=== PATIENT | male | born 1980 | race American Indian/Alaskan Native ===

== ENCOUNTER 2020-05-27 02:27 | Emergency (ER) | payer MEDICAID ==
[2020-05-27 02:59] VITALS: BP 132/80
[2020-05-27] MEDS ORDERED: KETOROLAC 60 MG/2 ML INJ IM STA (05:00)
[2020-05-27] MEDS ORDERED: oxyCODONE /ACETAMINOPHEN 5-325MG TAB PO ONE (05:00)
--- NOTE | 2020-05-27 06:06 | XRay Report ---
Right knee-3 views INDICATION: pain and swelling injury. COMPARISON: None. IMPRESSION: ORIF change in the proximal tibia with partial bridging heterotopic ossification about t he knee itself. There is mild tricompartmental DJD and a small suprapatellar effusion. No acute fract ure. Normal alignment. Signer Name: Matthew Faulkner MD Signed: 05/27/2020 6:02 AM Workstation Name: [id number]
--- NOTE | 2020-05-27 06:07 | XRay Report ---
Right ankle-4 views INDICATION: pain and swelling injury. COMPARISON: None. IMPRESSION: Generalized soft tissue swelling about the ankle with no acute fracture or malalignment. Pes planus noted along with mild degenerative changes. Signer Name: Matthew Faulkner MD Signed: 05/27/2020 6:02 AM Workstation Name: [id number]
--- NOTE | 2020-05-27 06:29 | Emergency Department Report ---
ED Lower Extremity HPI - General Chief Complaint: Extremity Injury, Lower Stated Complaint: LEG PAIN Time Seen by Provider: 05/27/20 05:00 Source: patient Mode of arrival: Ambulatory Limitations: No Limitations - History of Present Illness Initial Comments: 39-year-old obese -[place] male was walking upstairs when he misstepped causing pain to his right knee and ankle followed by swelling has been progressive worsening since the onset a couple days ago. Reports having had knee surgery and leg surgery due to an injury in January of this month and thinks he may have had aggravated the site. He reports no fever, chills, sweats no numbness no tingling but the pain is dull and throbbing worse with palpation and range of motion and certain positions and with weightbearing MD Complaint: knee injury, ankle injury -: Sudden Severity: moderate, severe Improves With: nothing Worsens With: palpation Associated Symptoms: swelling, able to partially bear weight - Related Data Previous Rx's Medication Instructions Recorded Last Taken Type Ketorolac [Toradol] 10 mg PO Q6H PRN #14 tablet 05/27/20 Unknown Rx traMADoL [Ultram] 50 mg PO Q6HR PRN #20 tablet 05/27/20 Unknown Rx Allergies Allergy/AdvReac Type Severity Reaction Status Date / Time shrimp Allergy Mild Itching Verified 05/27/20 05:28 ED Review of Systems ROS: Stated complaint: LEG PAIN Other details as noted in HPI Comment: All other systems reviewed and negative ED Past Medical Hx - Past Medical History Previous Medical History?: Yes Hx Congestive Heart Failure: Yes Hx Arthritis: Yes (RA) Hx Asthma: Yes - Surgical History Past Surgical History?: Yes Additional Surgical History: LEG, Knee, right hand - Social History Smoking Status: Current Every Day Smoker Substance Use Type: Marijuana - Medications Home Medications: Home Medications Medication Instructions Recorded Confirmed Last Taken Type Ketorolac [Toradol] 10 mg PO Q6H PRN #14 tablet 05/27/20 Unknown Rx traMADoL [Ultram] 50 mg PO Q6HR PRN #20 tablet 05/27/20 Unknown Rx ED Physical Exam - General Limitations: No Limitations General appearance: alert, in no apparent distress - Head Head exam: Present: atraumatic, normocephalic - Eye Eye exam: Present: normal appearance, PERRL Pupils: Present: normal accommodation - ENT ENT exam: Present: normal exam, mucous membranes moist - Neck Neck exam: Present: normal inspection - Respiratory Respiratory exam: Present: normal lung sounds bilaterally. Absent: respiratory distress - Cardiovascular Cardiovascular Exam: Present: regular rate, normal rhythm. Absent: systolic murmur, diastolic murmur, rubs, gallop - GI/Abdominal GI/Abdominal exam: Present: soft, normal bowel sounds - Rectal Rectal exam: Present: deferred - Extremities Exam Extremities exam: Present: normal inspection, full ROM, normal capillary refill, joint swelling - Expanded Lower Extremity Exam Right Hip exam: Present: normal inspection Upper Leg exam: Present: normal inspection Knee exam: Present: tenderness, swelling, ecchymosis, pain w/ pronation/supination, pain/laxity with valgus, pain/laxity with varus Lower Leg exam: Present: normal inspection Ankle exam: Present: tenderness, swelling, ecchymosis. Absent: full ROM Foot/Toe exam: Present: normal inspection - Back Exam Back exam: Present: normal inspection - Neurological Exam Neurological exam: Present: alert, oriented X3 - Psychiatric Psychiatric exam: Present: normal affect, normal mood - Skin Skin exam: Present: warm, dry, intact, normal color. Absent: rash ED Course Vital Signs 05/27/20 02:57 Temperature 97.9 F Pulse Rate 82 Respiratory 20 Rate Blood Pressure 132/80 [Right] O2 Sat by Pulse 98 Oximetry Critical care attestation.: If time is entered above; I have spent that time in minutes in the direct care of this critically ill patient, excluding procedure time. ED Disposition Clinical Impression: Knee internal derangement Disposition: DC-01 TO HOME OR SELFCARE Is pt being admited?: No Does the pt Need Aspirin: No Condition: Stable Instructions: Meniscus Tear, Acute Knee Pain, Adult, How to Use a Knee Immobilizer, Knee Effusion, How to Use a Knee Immobilizer, [id number], Knee Sprain, Pediatric Prescriptions: Ketorolac [Toradol] 10 mg PO Q6H PRN #14 tablet PRN Reason: Pain traMADoL [Ultram] 50 mg PO Q6HR PRN #20 tablet PRN Reason: Pain Referrals: KYARA HUFF MD [Primary Care Provider] - 3-5 Days
== END 2020-05-27 07:15 | disposition home or self-care (01) ==
LOC: ED 02:27
DX: M23.91 Unspecified internal derangement of right knee (principal); I50.9 Heart failure, unspecified; M19.90 Unspecified osteoarthritis, unspecified site; J45.909 Unspecified asthma, uncomplicated; F17.200 Nicotine dependence, unspecified, uncomplicated; F12.10 Cannabis abuse, uncomplicated; Z79.899 Other long term (current) drug therapy; Z91.013 Allergy to seafood
CPT/HCPCS: 73562; 73610; 96372; 99283; J1885

== ENCOUNTER 2021-01-21 03:57 | Emergency (ER) | payer MEDICAID ==
[2021-01-21 04:10] VITALS: BP 114/64
[2021-01-21] MEDS ORDERED: ASPIRIN 325 MG TAB PO ONE (04:10)
[2021-01-21 04:31] LABS: Basophils # (Auto) 0.1 K/mm3 (0.0-0.1); Basophils % (Auto) 0.8 % (0.0-1.8); Eosinophils # (Auto) 0.2 K/mm3 (0.0-0.4); Eosinophils % (Auto) 2.3 % (0.0-4.3); Hematocrit 41.2 % (35.5-45.6); Hemoglobin 14.3 gm/dl (11.8-15.2); Lymphocytes # (Auto) 1.7 K/mm3 (1.2-5.4); Mean Corpuscular HGB Conc 35 % (32-34); Mean Corpuscular Volume 95 fl (84-94); Monocytes # (Auto) 0.5 K/mm3 (0.0-0.8); Monocytes % (Auto) 7.2 % (0.0-7.3); Platelet Count 374 K/mm3 (140-440); Red Blood Count 4.33 M/mm3 (3.65-5.03); Red Cell Distribution Width 12.9 % (13.2-15.2)
--- NOTE | 2021-01-21 04:43 | XRay Report ---
CHEST 2 VIEWS INDICATION / CLINICAL INFORMATION: chest pain, cough. COMPARISON: None available. FINDINGS: SUPPORT DEVICES: None. HEART / MEDIASTINUM: No significant abnormality. LUNGS / PLEURA: No significant pulmonary abnormality. No significant pleural effusion. No pneumothora x. ADDITIONAL FINDINGS: No significant additional findings. IMPRESSION: 1. No acute abnormality of the chest. Signer Name: Greyson Fu MD Signed: 01/21/2021 4:39 AM Workstation Name: [id number]
[2021-01-21 05:01] LABS: Alanine Aminotransferase 13 units/L (7-56); Albumin 4.3 g/dL (3.9-5); BUN/Creatinine Ratio 12; Blood Urea Nitrogen 14 mg/dL (9-20); Calcium 9.7 mg/dL (8.4-10.2); Hemolysis Index 4
--- NOTE | 2021-01-22 17:44 | Electrocardiograph Report ---
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
== END 2021-01-21 06:50 | disposition left against medical advice (07) ==
LOC: ED 03:57
DX: R51.9 Headache, unspecified (principal); R05 Cough; R42 Dizziness and giddiness; Z53.21 Procedure and treatment not carried out due to patient leaving prior to being seen by health care provider
CPT/HCPCS: 36415; 71046; 80053; 84484; 85025; 93005

== ENCOUNTER 2021-02-18 23:28 | Emergency (ER) | payer MEDICAID ==
[2021-02-19 00:27] VITALS: BP 128/95
[2021-02-19] MEDS ORDERED: HYDROcodone/ACETAMINOPHEN 10-325MG TAB PO ONE (01:35)
[2021-02-19] MEDS ORDERED: ONDANSETRON 4 MG ODT TAB PO ONE (01:35)
[2021-02-19] MEDS ORDERED: IBUPROFEN 600 MG TAB PO ONE (01:35)
--- NOTE | 2021-02-19 02:43 | Vascular Lab Report ---
DUPLEX DOPPLER LOWER EXTREMITY VEINS, BILATERAL INDICATION / CLINICAL INFORMATION: Leg pain - r/o DVT. Lower extremity pain and swelling. TECHNIQUE: Duplex doppler imaging was performed through the veins of both lower extremities using venous jeaneth carmel and other maneuvers. COMPARISON: None available. FINDINGS: Right Common Femoral vein: Negative. Right Femoral vein: Negative. Right Popliteal vein: Negative. Right Calf veins: Negative. Left Common Femoral vein: Negative. Left Femoral vein: Negative. Left Popliteal vein: Negative. Left Calf veins: Negative. Additional findings: None. IMPRESSION: 1. No sonographic evidence for DVT in either lower extremity. Signer Name: Rome Pruitt MD Signed: 02/19/2021 2:39 AM Workstation Name: [id number]
--- NOTE | 2021-02-19 03:05 | XRay Report ---
Left ankle 3 views INDICATION: Left ankle pain following injury IMPRESSION: Mild edema surrounds the ankle but no fracture or subluxation is identified. Signer Name: Rome Pruitt MD Signed: 02/19/2021 3:00 AM Workstation Name: [id number]
--- NOTE | 2021-02-19 03:05 | XRay Report ---
Left knee 3 views INDICATION: Left knee pain IMPRESSION: No fracture or subluxation of the left knee. Small knee effusion. Signer Name: Rome Pruitt MD Signed: 02/19/2021 3:01 AM Workstation Name: [id number]
--- NOTE | 2021-02-19 03:58 | Emergency Department Report ---
ED Lower Extremity HPI - General Chief Complaint: Extremity Injury, Lower Stated Complaint: MY ACHILLES TENDON Source: patient Mode of arrival: Ambulatory Limitations: No Limitations - History of Present Illness Initial Comments: Patient is a 40-year-old -[place] male with a history of morbid obesity, CHF, hypertension, chronic rheumatoid arthritis and asthma who presents to the ED with complaint of acute onset persistent severe right ankle, right lower leg and posterior right knee pain after he stepped out of his pickup truck and felt a "pop" sound and felt that he may have torn his Achilles tendon about 2 hours prior to arrival in the ED. Patient states that he can hardly bear weight on the left leg because of worsening pain. Patient denies fall, traumatic injury, heavy lifting, low back pain, nausea and vomiting, dizziness, syncope, chest pain or shortness of breath, hip pain, headache, numbness and tingling or weakness of lower extremities bilaterally. MD Complaint: knee injury (LEFT), leg injury (LEFT LEG PAIN), ankle injury (LEFT ) -: Sudden, hour(s) (2) Injury: Leg: Left (Left lower leg pain), Knee: Left (Posterior left knee), Ankle: Left (left ankle pain) Type of Injury: hyperextension Place: home Severity: severe Severity scale (0 -10): 8 Improves With: nothing Worsens With: weight bearing, movement, palpation Context: walking (stepped out of his Truck) Associated Symptoms: snap/pop sensation, able to partially bear weight. denies: swelling, numbness, tingling, unable to bear weight - Related Data Previous Rx's Medication Instructions Recorded Last Taken Type Ketorolac [Toradol] 10 mg PO Q6H PRN #14 tablet 05/27/20 Unknown Rx Baclofen 20 mg PO Q12H PRN #30 tablet 02/19/21 Unknown Rx Ibuprofen [Motrin] 800 mg PO Q8HR PRN #30 tablet 02/19/21 Unknown Rx traMADoL [Ultram 50 MG tab] 50 mg PO Q6HR PRN #12 tablet 02/19/21 Unknown Rx Allergies Allergy/AdvReac Type Severity Reaction Status Date / Time shrimp Allergy Mild Itching Verified 05/27/20 05:28 ED Review of Systems ROS: Stated complaint: MY ACHILLES TENDON Other details as noted in HPI Constitutional: denies: chills, fever Eyes: denies: eye pain, eye discharge, vision change ENT: denies: ear pain, throat pain Respiratory: denies: cough, shortness of breath, wheezing Cardiovascular: denies: chest pain, palpitations Endocrine: no symptoms reported Gastrointestinal: denies: abdominal pain, nausea, diarrhea Genitourinary: denies: urgency, dysuria Musculoskeletal: arthralgia (left ankle, lower leg and left knee pain). denies: back pain, joint swelling Skin: denies: rash, lesions Neurological: denies: headache, weakness, paresthesias Psychiatric: denies: anxiety, depression Hematological/Lymphatic: denies: easy bleeding, easy bruising ED Past Medical Hx - Past Medical History Previous Medical History?: Yes Hx Congestive Heart Failure: Yes Hx Arthritis: Yes (RA) Hx Asthma: Yes - Surgical History Past Surgical History?: Yes Additional Surgical History: LEG, Knee, right hand - Social History Smoking Status: Never Smoker Substance Use Type: Marijuana - Medications Home Medications: Home Medications Medication Instructions Recorded Confirmed Last Taken Type Ketorolac [Toradol] 10 mg PO Q6H PRN #14 tablet 05/27/20 Unknown Rx Baclofen 20 mg PO Q12H PRN #30 tablet 02/19/21 Unknown Rx Ibuprofen [Motrin] 800 mg PO Q8HR PRN #30 tablet 02/19/21 Unknown Rx traMADoL [Ultram 50 MG tab] 50 mg PO Q6HR PRN #12 tablet 02/19/21 Unknown Rx ED Physical Exam - General Limitations: No Limitations General appearance: alert, in no apparent distress - Head Head exam: Present: atraumatic, normocephalic, normal inspection - Eye Eye exam: Present: normal appearance, PERRL, EOMI Pupils: Present: normal accommodation - ENT ENT exam: Present: normal exam, normal orophraynx, mucous membranes moist, TM's normal bilaterally, normal external ear exam - Neck Neck exam: Present: normal inspection, full ROM. Absent: tenderness - Respiratory Respiratory exam: Present: normal lung sounds bilaterally. Absent: respiratory distress, wheezes, rales, rhonchi, chest wall tenderness, decreased breath sounds, prolonged expiratory - Cardiovascular Cardiovascular Exam: Present: regular rate, normal rhythm, normal heart sounds. Absent: systolic murmur, diastolic murmur, rubs, gallop - GI/Abdominal GI/Abdominal exam: Present: soft, normal bowel sounds. Absent: tenderness, guarding, rebound, hyperactive bowel sounds, hypoactive bowel sounds, organomegaly - Extremities Exam Extremities exam: Present: normal inspection, tenderness (Palpable severe reproducible posterior left lower leg musculoskeletal tenderness; palpable severe posterior left knee and left ankle tenderness), normal capillary refill, calf tenderness (Palpable posterior left calf tenderness). Absent: full ROM (Limited range of motion of left lower leg due to pain) - Back Exam Back exam: Present: normal inspection, full ROM. Absent: tenderness, CVA tenderness (R), CVA tenderness (L), muscle spasm, paraspinal tenderness, vertebral tenderness - Neurological Exam Neurological exam: Present: alert, oriented X3, CN II-XII intact, motor sensory deficit, reflexes normal, other (Gait not tested due to patient's pain and discomfort) - Psychiatric Psychiatric exam: Present: normal affect, normal mood - Skin Skin exam: Present: warm, dry, intact, normal color. Absent: rash ED Course Vital Signs 02/19/21 00:26 Temperature 99.0 F Pulse Rate 89 Respiratory 16 Rate Blood Pressure 128/95 O2 Sat by Pulse 96 Oximetry ED Lower Extremity MDM - Radiology Data Radiology results: report reviewed, image reviewed Bilateral lower extremity Doppler ultrasound showed no sonographic evidence of DVT Left knee x-ray showed no acute fractures or subluxations but joint effusion Left ankle x-ray showed no acute fractures or subluxations but soft tissue swelling - Medical Decision Making This is a 40-year-old -[place] male with a history of morbid obesity, CHF, hypertension, chronic rheumatoid arthritis and asthma who presents to the ED with complaint of acute onset persistent severe right ankle, right lower leg and posterior right knee pain after he stepped out of his pickup truck and felt a "pop" sound and felt that he may have torn his Achilles tendon about 2 hours prior to arrival in the ED. Patient states that he can hardly bear weight on the left leg because of worsening pain. In the ED, patient is alert and oriented x3 and is not in any distress but appears to be in significant pain. Patient was treated for pain in the ED and left knee x-ray showed no acute fractures or subluxations. Left ankle x-ray also showed no acute fractures or subluxations but soft tissue swelling. The bilateral lower extremity Doppler ultrasound showed no sonographic evidence of DVT. On reevaluation, patient's pain is well controlled medications. Patient was referred to the orthopedic surgeon Dr. Pineda for further evaluation and was advised to contact the Edwin's office first thing this morning on Monday, February 19, 2021 to schedule a follow-up appointment. Patient was also advised to follow-up with his primary care physician in 5 to 7 days for reevaluation. Patient was advised to return to the ED immediately if symptoms get worse. - Differential Diagnosis Knee fracture; ankle fracture; Achilles tendon rupture; muscle strain; Critical care attestation.: If time is entered above; I have spent that time in minutes in the direct care of this critically ill patient, excluding procedure time. ED Disposition Clinical Impression: Muscle strain of left lower extremity Qualifiers: Encounter type: initial encounter Qualified Code(s): S86.912A - Strain of unspecified muscle(s) and tendon(s) at lower leg level, left leg, initial encounter Severe sprain of left ankle Qualifiers: Encounter type: initial encounter Qualified Code(s): S93.402A - Sprain of unspecified ligament of left ankle, initial encounter Sprain of collateral ligament of left knee Qualifiers: Encounter type: initial encounter Qualified Code(s): S83.402A - Sprain of unspecified collateral ligament of left knee, initial encounter Disposition: HOME / SELF CARE / HOMELESS Is pt being admited?: No Does the pt Need Aspirin: No Condition: Stable Instructions: Ankle Sprain, [id number], Knee Sprain, Adult, [id number], Muscle Strain, [id number] Additional Instructions: The bilateral lower extremity Doppler ultrasound showed no sonographic evidence of DVT. The left knee x-ray showed no acute fractures or subluxations. Left ankle x-ray also showed no acute fractures or subluxations. The imaging test performed however could not rule out a ligament injury or Achilles tendon rupture. Therefore take pain medications with food, drink plenty of fluids and follow-up with the orthopedic surgeon Dr. Pineda in the next 1 to for 48 hours for further evaluation. Contact Dr. Pineda's office first thing in the morning today Friday, February 19, 2021 to schedule a follow-up appointment. Return to the ED immediately if symptoms get worse. Otherwise follow-up with your primary care physician in 7 to 10 days for reevaluation. Prescriptions: Baclofen 20 mg PO Q12H PRN #30 tablet PRN Reason: Muscle Spasm Ibuprofen [Motrin] 800 mg PO Q8HR PRN #30 tablet PRN Reason: Pain , Severe (7-10) traMADoL [Ultram 50 MG tab] 50 mg PO Q6HR PRN #12 tablet PRN Reason: Pain Referrals: [facility] [Provider Group] - 3-5 Days KATIE PINEDA MD [Staff Physician] - [place] Forms: Work/School Release Form(ED) Time of Disposition: 04:01 Print Language: NEPALI
[2021-02-19] MEDS ORDERED: oxyCODONE /ACETAMINOPHEN 5-325MG TAB PO ONE (04:43)
== END 2021-02-19 05:02 | disposition home or self-care (01) ==
LOC: ED 23:28
DX: S86.911A Strain of unspecified muscle(s) and tendon(s) at lower leg level, right leg, initial encounter (principal); S93.402A Sprain of unspecified ligament of left ankle, initial encounter; S83.402A Sprain of unspecified collateral ligament of left knee, initial encounter; Z87.09 Personal history of other diseases of the respiratory system; Z87.39 Personal history of other diseases of the musculoskeletal system and connective tissue; Z86.79 Personal history of other diseases of the circulatory system; I10 Essential (primary) hypertension; Y93.89 Activity, other specified; Y93.01 Activity, walking, marching and hiking; Y92.89 Other specified places as the place of occurrence of the external cause; Y99.8 Other external cause status
CPT/HCPCS: 93970; 99284; Q0162